=== PATIENT | male | born 1945 | race Caucasian/White ===

== ENCOUNTER 2016-09-21 21:30 | Observation (INO) | payer OTHER ==
[~2016-09-21] VITALS: Ht 172.7 cm; Wt 52.7 kg
[~2016-09-21 21:30] MED LIST: ADVA100A INH; ASPI1TAB69 PO; ATOR40TA16 PO; FINA5TAB2 PO; MIRTA15 PO; MULTTAB67 PO; PANT40TA3 PO; PRED10PA PO; QUET1TAB7 PO; SERT25TA83 PO; TAMS5CAP PO; VERA120 PO
[2016-09-21 21:38] VITALS: BP 156/98; PULSE 100; RESP 20; RESP 36; TEMP 96.1; O2SAT 96
[2016-09-21 22:00] VITALS: TEMP 100.8
[2016-09-21 22:06] VITALS: RESP 22; O2SAT 96
--- NOTE | 2016-09-21 22:08 | PD ---
HPI Chief Complaint: Respiratory Symptoms Time Seen by Provider: 22:03 Travel History International Travel<30 days: No Contact w/Intl Traveler<30days: No Traveled to known affect area: No History of Present Illness HPI The patient is a 71-year-old male with a history of COPD who complains of shortness of breath and pleuritic posterior right rib pain for 2 days. He has had a cough productive of yellow sputum. He denies any fever or chills. His temperature here is 100.8 rectally. He denies any hemoptysis. He denies any leg swelling. He has not smoked in over 30 years. He has not used his nebulizer machine at home. He got off steroids one week ago. PFSH Past Medical History Hx Anticoagulant Therapy: Yes Arthritis: Yes (Gout) Asthma: No Autoimmune Disease: No Blood Disorders: No Bipolar Disorder: Yes (INSOMNIA) Anxiety: No Depression: No Heart Rhythm Problems: No Cancer: No Cardiovascular Problems: Yes High Cholesterol: Yes Chemotherapy: No Chest Pain: Yes Congestive Heart Failure: Yes COPD: Yes Cerebrovascular Accident: No Coronary Artery Disease: Yes Diabetes: Yes Patient Takes Glucophage: Yes Diminished Hearing: No Endocrine: Yes Gastrointestinal Disorders: Yes (diverticulitis; SBO with resectionx3) GERD: Yes Genitourinary: Yes (prostate enlarged) Hypertension: Yes Immune Disorder: No Implanted Vascular Access Dvce: Yes Musculoskeletal: Yes Neurologic: No Psychiatric: No Reproductive: No Respiratory: Yes Immunizations Current: Yes Myocardial Infarction: Yes Radiation Therapy: No Sleep Apnea: No Thyroid Disease: No Tetanus Vaccination: > 5 Years Past Surgical History Abdominal Surgery: Yes (SB resecetion) Body Medical Devices: cardiac stents Cardiac Surgery: Yes (MIx2 WITH MULTIPLE STENT PLACEMENT, CABG 1 vessle RCA ) Coronary Artery Bypass Graft: Yes Coronary Stent: Yes Eye Surgery: Yes (CATERACTS REMOVED BILAT) Hysterectomy: No Joint Replacement: Yes (left ROTATOR CUFF REPAIR) Neurologic Surgery: No Pacemaker: No Thoracic Surgery: Yes (UMM UPPER LOBECTOMY) Other Surgery: Yes (multiple) Social History Alcohol Use: No Tobacco Use: No Substance Use: No Allergies-Medications (Allergen,Severity, Reaction): Coded Allergies: Morphine (Verified Allergy, Severe, Rash, 09/21/16) Azithromycin (Verified Allergy, Intermediate, Itching, 09/21/16) *MDRO Multi-Drug Resistant Organism (Verified Adverse Reaction, Unknown, MRSA, ESBL, 09/21/16) ESBL (sputum) - 07/18/15 & 08/17/15 ESBL (urine) - 08/22/15 MRSA PCR screen POSITIVE - 05/13/16; 06/14/16, 08/07/16 Reported Meds & Prescriptions Reported Meds & Active Scripts Active Prednisone (21) 10 mg tab Dose Pack (Prednisone) 10 Mg Pack 10 Mg PO DIRECTED Pantoprazole (Pantoprazole Sodium) 40 Mg Tab 40 Mg PO DAILY Mirtazapine 15 Mg Tab 30 Mg PO HS Calan (Verapamil HCl) 120 Mg Tab 120 Mg PO DAILY Flomax (Tamsulosin HCl) 0.4 Mg Cap 0.4 Mg PO DAILY Quetiapine (Quetiapine Fumarate) 25 Mg Tab 50 Mg PO BID Finasteride 5 Mg Tab 5 Mg PO DAILY Reported Sertraline (Sertraline HCl) 25 Mg Tab 25 Mg PO HS Multiple Vitamin 1 Tab 1 Tab PO DAILY Atorvastatin (Atorvastatin Calcium) 40 Mg Tab 40 Mg PO HS Aspirin 81 Mg Tabdr 81 Mg PO DAILY Advair Diskus Inh (Fluticasone-Salmeterol Inh) 100-50 Mcg/Blist Aer 1 Puff INH BID Rinse mouth after use. Review of Systems Except as stated in HPI: all other systems reviewed are Neg Physical Exam Narrative GENERAL: The patient is alert, oriented 3 in moderate respiratory distress. His vital signs show respiratory rate of 36 with oximetry 96%, heart rate of 100 and blood pressure 156/98 and rectal temperature of 100.8. SKIN: Warm and dry. HEAD: Atraumatic. Normocephalic. EYES: Pupils equal and round. No scleral icterus. No injection or drainage. ENT: No nasal bleeding or discharge. Mucous membranes pink and moist. NECK: Trachea midline. No JVD. CARDIOVASCULAR: Regular rate and rhythm. No murmur appreciated. RESPIRATORY: No accessory muscle use. Clear to auscultation. Breath sounds equal but diminished bilaterally. GASTROINTESTINAL: Abdomen soft, non-tender, nondistended. Hepatic and splenic margins not palpable. MUSCULOSKELETAL: No obvious deformities. No clubbing. No cyanosis. No edema. NEUROLOGICAL: Awake and alert. No obvious cranial nerve deficits. Motor grossly within normal limits. Normal speech. PSYCHIATRIC: Appropriate mood and affect; insight and judgment normal. Data Data Last Documented VS Vital Signs Date Time Temp Pulse Resp B/P Pulse Ox O2 Delivery O2 Flow Rate FiO2 09/21/16 22:27 94 Nasal Cannula 3.00 09/21/16 22:06 22 09/21/16 22:00 100.8 09/21/16 21:38 100 156/98 Orders Complete Blood Count With Diff (09/21/16 22:03) Comprehensive Metabolic Panel (09/21/16 22:03) B-Type Natriuretic Peptide (09/21/16 22:03) Magnesium (Mg) (09/21/16 22:03) Ckmb (Isoenzyme) Profile (09/21/16 22:03) Troponin I (09/21/16 22:03) Urinalysis - C+S If Indicated (09/21/16 22:03) Influenzae A/B Antigen (09/21/16 22:03) Blood Culture (09/21/16 22:03) Iv Access Insert/Monitor (09/21/16 22:03) Electrocardiogram (09/21/16 22:03) Ecg Monitoring (09/21/16 22:03) Oximetry (09/21/16 22:03) Oxygen Administration (09/21/16 22:03) Chest, Pa & Lat (09/21/16 22:03) Sodium Chloride 0.9% Flush (Ns Flush) (09/21/16 22:15) Methylprednisolone So Succ Inj (Solumedr (09/21/16 22:15) Albuterol-Ipratropium Neb (Duoneb Neb) (09/21/16 22:15) Lactic Acid (09/21/16 22:17) Arterial Blood Gas (Abg) (09/21/16 23:05) Sodium Chloride 0.9% Flush (Ns Flush) (09/21/16 23:15) Albuterol-Ipratropium Neb (Duoneb Neb) (09/21/16 23:15) Lorazepam Inj (Ativan Inj) (09/21/16 23:30) Labs Laboratory Tests Test 09/21/16 09/21/16 22:00 23:22 White Blood Count 9.0 TH/MM3 Red Blood Count 5.40 MIL/MM3 Hemoglobin 16.6 GM/DL Hematocrit 48.9 % Mean Corpuscular Volume 90.6 FL Mean Corpuscular Hemoglobin 30.8 PG Mean Corpuscular Hemoglobin 34.0 % Concent Red Cell Distribution Width 12.8 % Platelet Count 280 TH/MM3 Mean Platelet Volume 7.3 FL Neutrophils (%) (Auto) 65.4 % Lymphocytes (%) (Auto) 21.5 % Monocytes (%) (Auto) 7.2 % Eosinophils (%) (Auto) 2.8 % Basophils (%) (Auto) 3.1 % Neutrophils # (Auto) 5.9 TH/MM3 Lymphocytes # (Auto) 1.9 TH/MM3 Monocytes # (Auto) 0.6 TH/MM3 Eosinophils # (Auto) 0.3 TH/MM3 Basophils # (Auto) 0.3 TH/MM3 CBC Comment DIFF FINAL Differential Comment Sodium Level 139 MEQ/L Potassium Level 5.4 MEQ/L Chloride Level 103 MEQ/L Carbon Dioxide Level 25.4 MEQ/L Anion Gap 11 MEQ/L Blood Urea Nitrogen 16 MG/DL Creatinine 1.30 MG/DL Estimat Glomerular Filtration 54 ML/MIN Rate Random Glucose 95 MG/DL Calcium Level 9.5 MG/DL Magnesium Level 2.2 MG/DL Total Bilirubin 0.9 MG/DL Aspartate Amino Transf 40 U/L (AST/SGOT) Alanine Aminotransferase 18 U/L (ALT/SGPT) Alkaline Phosphatase 119 U/L Total Creatine Kinase 100 U/L Troponin I LESS THAN 0.02 NG/ML B-Type Natriuretic Peptide 44 PG/ML Total Protein 7.9 GM/DL Albumin 3.3 GM/DL Blood Gas Puncture Site LT BRACHIAL Blood Gas Patient Temperature 98.6 Blood Gas HCO3 15 mmol/L Blood Gas Base Excess -5.7 mmol/L Blood Gas Oxygen Saturation 96 % Arterial Blood pH 7.69 Arterial Blood Partial 12 mmHG Pressure CO2 Arterial Blood Partial 92 mmHG Pressure O2 Arterial Blood Oxygen Content 21.2 Vol % Arterial Blood 2.1 % Carboxyhemoglobin Arterial Blood Methemoglobin 0.9 % Blood Gas Hemoglobin 15.7 G/DL Oxygen Delivery Device NASAL CANNULA Blood Gas Liter Flow 3 L/M [facility] Medical Decision Making Medical Screen Exam Complete: Yes Emergency Medical Condition: Yes Medical Record Reviewed: Yes Interpretation(s) The EKG shows PVCs but otherwise no acute change. There is a sinus rhythm with a rate of 90. The chest x-ray shows no acute infiltrate but does show stable basilar scarring and fibrotic changes along with emphysema. The CBC is normal. The complete metabolic profile shows potassium of 5.4, AST of 40, alkaline phosphatase 119, and albumin of 3.3. The BNP is normal. The cardiac enzymes are normal. The influenza A/B antigen is negative for flu a and flu B antigen. Differential Diagnosis Pneumonia, rib fracture, COPD with acute exacerbation, hypoxemia, bronchitis, anxiety/hyperventilation, sepsis Narrative Course The patient does have a fever with a rectal temperature. He does fit SIRS criteria because of the respiratory rate and tachycardia. The source of fever is unknown. He does have extreme anxiety/hyperventilation. Pulmonary embolus is highly unlikely, his oxygenation goes up when he is put on his usual 3 L nasal cannula. Sepsis Criteria SIRS Criteria (2 or more): Heart rate over 90, RR > 20 or PaCO2 < 32 Criteria Outcome: Meets SIRS criteria Diagnosis Primary Impression: Anxiety hyperventilation Additional Impression: SIRS (systemic inflammatory response syndrome) Admitting Information Admitting Physician Requests: Observation Khoa Lance MD Sep 21, 2016 22:08
[2016-09-21] MEDS ORDERED: methylPREDNISolone SOD SUCC 125 MG/2 ML VIAL IVP ONE (22:15)
[2016-09-21] MEDS ORDERED: SODIUM CHLORIDE 0.9% FLUSH 5 ML FLUSH IVF PRN ×2 (22:15→23:15)
[2016-09-21 22:25] LABS: AUTOMATED NEUTROPHIL # 5.9 TH/MM3 (1.8-7.7); BASOPHIL # 0.3 TH/MM3 (0-0.2); BASOPHIL % 3.1 % (0.0-2.0); EOSINOPHIL # 0.3 TH/MM3 (0-0.4); EOSINOPHIL % 2.8 % (0.0-4.0); HEMATOCRIT 48.9 % (39.0-51.0); HEMO FLAGS DIFF FINAL; LYMPH % 21.5 % (9.0-44.0); LYMPHOCYTE # 1.9 TH/MM3 (1.0-4.8); MEAN CELL VOLUME 90.6 FL (80.0-100.0); MEAN CORPUSCULAR HEMOGLOBIN 30.8 PG (27.0-34.0); MONO % 7.2 % (0.0-8.0); NEUT % 65.4 % (16.0-70.0); PLATELET COUNT 280 TH/MM3 (150-450); RED CELL DISTRIBUTION WIDTH 12.8 % (11.6-17.2)
[2016-09-21 22:27] VITALS: O2SAT 94
[2016-09-21] MEDS: RESP: ALBUTEROL 2.5 MG/IPRATROPIUM 0.5 MG NEB (SCH) INH ×5 (22:27→23:30)
[2016-09-21 22:32] LABS: CHLORIDE 103 MEQ/L (98-107); SODIUM (NA) 139 MEQ/L (136-145)
[2016-09-21 22:35] LABS: ANION GAP 11 MEQ/L (5-15); BICARBONATE 25.4 MEQ/L (21.0-32.0); MAGNESIUM 2.2 MG/DL (1.5-2.5)
--- NOTE | 2016-09-21 22:35 | RADHPO ---
EXAM DATE/TIME: 09/21/2016 22:12 [facility] COMPARISON: CHEST PA & LAT, August 30, 2016, 22:46. INDICATIONS : Patient has been short of breath and had back pain for two days. MEDICAL HISTORY : Chronic obstructive pulmonary disease. SURGICAL HISTORY : CABG. ENCOUNTER: Initial ACUITY: 2 days PAIN SCORE: 8/10 LOCATION: Bilateral chest FINDINGS: PA and lateral views of the chest demonstrate postop median sternotomy. Lung steve noted both apice s. Underlying emphysema and basilar fibrotic changes and pleural scarring. No change from August. CONCLUSION: 1. No acute infiltrate. Stable basilar scarring and fibrotic changes. Emphysema. Coronary stent prese nt. Kevin Giang MD on September 21, 2016 at 22:32 Board Certified Radiologist. This report was verified electronically.
[2016-09-21 22:36] LABS: BLOOD UREA NITROGEN 16 MG/DL (7-18)
[2016-09-21 22:38] LABS: ALT (GPT) 18 U/L (12-78); AST (GOT) 40 U/L (15-37)
[2016-09-21 22:39] LABS: GLOMERULAR FILTRATION RATE 54 ML/MIN (>89)
[2016-09-21 22:40] LABS: TOTAL BILIRUBIN ADULT 0.9 MG/DL (0.2-1.0)
[2016-09-21 22:41] LABS: ALKALINE PHOSPHATASE 119 U/L (45-117)
[2016-09-21 22:43] LABS: CREATINE KINASE 100 U/L (39-308); POTASSIUM 5.4 MEQ/L (3.5-5.1)
[2016-09-21 23:00] VITALS: BP 156/88; PULSE 98; RESP 22; O2SAT 98
[2016-09-21] MEDS ORDERED: LORazepam 2 MG/ML VIAL IV PUSH ONE (23:30)
[2016-09-21 23:36] LABS: BLOOD GAS BASE EXCESS -5.7 mmol/L (-2-2); BLOOD GAS CARBOXYHEMOGLOBIN 2.1 % (0-4); BLOOD GAS HCO3 15 mmol/L (22-26); BLOOD GAS METHEMOGLOBIN 0.9 % (0-2); BLOOD GAS O2 HGB SATURATION 96 % (90-100); BLOOD GAS OXYGEN CONTENT 21.2 Vol % (12.0-20.0); BLOOD GAS PCO2 12 mmHG (38-42); BLOOD GAS PO2 92 mmHG (61-120); BLOOD GAS TOTAL HGB 15.7 G/DL (12.0-16.0); CRITICAL VALUE YES; DRAW SITE LT BRACHIAL; LITER FLOW 3 L/M; NUMBER OF ARTERIAL PUNCTURES 1; OXYGEN DEVICE NASAL CANNULA; STAT YES; TEMP CORR TO 98.6
[2016-09-22] VITALS (10 sets, daily range): BP systolic 102–157; BP diastolic 64–86; PULSE 90–114; RESP 20–22; TEMP 96.7–99.3; O2SAT 98–100
[2016-09-22] MEDS ORDERED: RESP: ALBUTEROL 2.5 MG/IPRATROPIUM 0.5 MG NEB (PRN) NEB
[2016-09-22] MEDS ORDERED: BISACODYL 10 MG SUPP PR PRN
[2016-09-22] MEDS ORDERED: ACETAMINOPHEN/HYDROcodone 325 MG/5 MG TAB PO PRN
[2016-09-22] MEDS ORDERED: ONDANSETRON HCL 4 MG/2 ML VIAL IVP PRN
[2016-09-22] MEDS ORDERED: ACETAMINOPHEN 325 MG TAB PO PRN
[2016-09-22] MEDS ORDERED: ACETAMINOPHEN/HYDROcodone 325 MG/10 MG TAB PO PRN
[2016-09-22] MEDS ORDERED: SODIUM CHLORIDE 0.9% FLUSH 5 ML FLUSH FLUSH PRN
[2016-09-22] MEDS ORDERED: LORazepam 2 MG/ML VIAL IV PUSH PRN
[2016-09-22] MEDS: methylPREDNISolone SOD SUCC 40 MG/1 ML VIAL IV PUSH SCH ×2 (03:53→09:43)
[2016-09-22] MEDS: RESP: ALBUTEROL 2.5 MG/IPRATROPIUM 0.5 MG NEB (SCH) NEB ×3 (07:47→15:57)
[2016-09-22] MEDS: guaiFENesin E.R. 600 MG TAB PO SCH ×2 (08:17→19:36)
[2016-09-22] MEDS: QUEtiapine FUMARATE 25 MG TAB PO SCH ×2 (08:17→19:32)
[2016-09-22] MEDS ORDERED: VERAPAMIL HCL 120 MG TAB PO SCH (09:00)
[2016-09-22] MEDS ORDERED: ASPIRIN EC 81 MG TABEC PO SCH (09:00)
[2016-09-22] MEDS ORDERED: FINASTERIDE 5 MG TAB PO SCH (09:00)
[2016-09-22] MEDS ORDERED: TAMSULOSIN HCL 0.4 MG CAP PO SCH (09:00)
[2016-09-22] MEDS ORDERED: PANTOPRAZOLE SOD 40 MG DELAYED RELEASE TAB PO SCH (09:00)
[2016-09-22] MEDS ORDERED: NON-FORMULARY DRUG (Fluticasone-Salmeterol Inh (Advair Diskus Inh) 1 PUFF) INH SCH (09:00)
[2016-09-22] MEDS: SODIUM CHLORIDE 0.9% FLUSH 5 ML FLUSH FLUSH SCH ×2 (09:42→19:42)
[2016-09-22] MEDS: BUDESONIDE-FORMOTEROL 160/4.5 MCG INHALER INH SCH ×2 (09:42→19:40)
[2016-09-22] MEDS ORDERED: METFORMIN HOLD POST IV CONTRAST XX SCH (11:15)
[2016-09-22] MEDS ORDERED: IOHEXOL 350 MG/ML 10 ML VIAL (for RAD DIAG) IV ONE (11:27)
--- NOTE | 2016-09-22 11:41 | RADHPO ---
EXAM DATE/TIME: 09/22/2016 10:55 [facility] COMPARISON: CT PULMONARY ANGIOGRAM, August 07, 2016, 22:00. INDICATIONS : Shortness of breath and right posterior chest pain for two days. IV CONTRAST: 70 cc Omnipaque 350 (iohexol) IV RADIATION DOSE: 12.46 CTDIvol (mGy) MEDICAL HISTORY : Congestive heart failure. Chronic obstructive pulmonary disease. Myocardial infarction. SURGICAL HISTORY : CABG Lobectomy. ENCOUNTER: Initial ACUITY: 2 days PAIN SCALE: 5/10 LOCATION: Right posterior chest TECHNIQUE: Volumetric scanning of the chest was performed using a pulmonary embolism protocol MIP images were re constructed. Using automated exposure control and adjustment of the mA and/or kV according to patien t size, radiation dose was kept as low as reasonably achievable to obtain optimal diagnostic quality images. FINDINGS: There is respiratory motion artifact. PULMONARY ARTERIES: No filling defects are seen in the pulmonary arteries through the segmental level. LUNGS: There is severe centrilobular and paraseptal emphysema. Staple lines are in the upper lobes bilateral ly indicating prior surgery. There is dependent atelectasis bilaterally. PLEURAE: There is no pleural thickening or pleural effusion. MEDIASTINUM: There is coronary artery calcification. No lymphadenopathy is visualized. MUSCULOSKELETAL: Patient is post median sternotomy. There are degenerative changes of the thoracic spine. MISCELLANEOUS: The visualized upper abdominal organs demonstrate no acute abnormality. CONCLUSION: 1. No PE is identified. 2. Severe emphysema. Bartolo Guaman MD on September 22, 2016 at 11:36 Board Certified Radiologist. This report was verified electronically.
[2016-09-22 14:00] LABS: BICARBONATE 23.1 MEQ/L (21.0-32.0); POTASSIUM 4.2 MEQ/L (3.5-5.1)
[2016-09-22 16:25] LABS: BLOOD GAS BASE EXCESS -7.1 mmol/L (-2-2); BLOOD GAS HCO3 14 mmol/L (22-26); BLOOD GAS METHEMOGLOBIN 0.9 % (0-2); BLOOD GAS O2 HGB SATURATION 97 % (90-100); BLOOD GAS OXYGEN CONTENT 19.8 Vol % (12.0-20.0); BLOOD GAS PCO2 14 mmHG (38-42); BLOOD GAS PO2 122 mmHG (61-120); BLOOD GAS TOTAL HGB 14.5 G/DL (12.0-16.0); TEMP CORR TO 98.6
[2016-09-22 16:27] LABS: CRITICAL VALUE YES; DRAW SITE LT RADIAL; LITER FLOW 2 L/M; NUMBER OF ARTERIAL PUNCTURES 1; OXYGEN DEVICE NASAL CANNULA; STAT YES; ULNAR PULSE PRESENT
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
[2016-09-22 19:55] LABS: BLOOD, URINE NEG (NEG); GLUCOSE,URINE NEG (NEG); KETONE, URINE NEG (NEG); NITRITE,URINE NEG (NEG)
[2016-09-22 20:01] LABS: URINE COLOR YELLOW (YELLW/STRAW)
[2016-09-22 20:02] LABS: COMMENT (UR) CULT NOT INDICATED; CULTURE IF INDICATED CULT NOT INDICATED; RBC, URINE 0-2 /hpf (0-3); SQUAMOUS EPITHELIAL CELL URINE 0-5 /hpf (0-5); WBC, URINE 0-2 /hpf (0-5)
[2016-09-22] MEDS ORDERED: MIRTAZAPINE 15 MG TAB PO SCH (21:00)
[2016-09-22] MEDS ORDERED: SERTRALINE HCL 50 MG TAB PO SCH (21:00)
[2016-09-22] MEDS ORDERED: clonazePAM 0.5 MG TAB PO SCH (21:00)
[2016-09-22] MEDS ORDERED: ATORVASTATIN 40 MG TAB PO SCH (21:00)
[2016-09-22] MEDS ORDERED: methylPREDNISolone SOD SUCC 125 MG/2 ML VIAL IV SCH (22:00)
--- NOTE | 2016-09-24 22:35 | EKG ---
Date Performed: 09/21/2016 Time Performed: 22:25:28 PTAGE: 71 years EKG: Sinus rhythm with PVC(s) Inferior infarct - age undetermined Abnormal ECG PREVIOUS TRACING : 08/30/2016 22.04 Compared to prior tracing no significant change DOCTOR: Elan Felix Interpretating Date/Time 09/24/2016 22:34:17
== END 2016-09-22 21:14 | disposition left against medical advice (07) ==
LOC: PHEFT 21:30 → UNDOADMOB 09-22 00:21 → PHEDA 09-22 00:21 → PH3A 09-22 01:27 → PHEDA 09-22 01:27 → PH3A 09-22 20:43 → UNDODISOB 09-22 21:14
PROVIDERS: ADMIT Family Medicine; ATTEND Family Medicine
DX: R65.10 Systemic inflammatory response syndrome (SIRS) of non-infectious origin without acute organ dysfunction (principal); F41.9 Anxiety disorder, unspecified; J96.10 Chronic respiratory failure, unspecified whether with hypoxia or hypercapnia; J44.9 Chronic obstructive pulmonary disease, unspecified; I25.10 Atherosclerotic heart disease of native coronary artery without angina pectoris; I12.9 Hypertensive chronic kidney disease with stage 1 through stage 4 chronic kidney disease, or unspecified chronic kidney disease; N18.3 Chronic kidney disease, stage 3 (moderate); E11.22 Type 2 diabetes mellitus with diabetic chronic kidney disease; E78.00 Pure hypercholesterolemia, unspecified; M54.9 Dorsalgia, unspecified; M10.9 Gout, unspecified; K21.9 Gastro-esophageal reflux disease without esophagitis; I25.2 Old myocardial infarction; E78.5 Hyperlipidemia, unspecified; E87.4 Mixed disorder of acid-base balance; M19.90 Unspecified osteoarthritis, unspecified site; Z87.891 Personal history of nicotine dependence; Z95.1 Presence of aortocoronary bypass graft; Z99.81 Dependence on supplemental oxygen
CPT/HCPCS: 36600; 71020; 71275; 76937; 80048; 80053; 81001; 82550; 82805; 83605; 83735; 83880; 84484; 85025; 85379; 87040; 87804; 93005; 94640; 94664; 96374; 96375; 99285; G0378; J2060; J2920; J2930; Q9967

== ENCOUNTER 2016-10-01 20:35 | Observation (INO) | payer OTHER ==
[~2016-10-01] VITALS: Ht 172.7 cm; Wt 52.4 kg
[2016-10-01] VITALS (7 sets, daily range): BP systolic 135–160; BP diastolic 60–98; PULSE 108–122; RESP 24–32; TEMP 99.8; O2SAT 92–97
[2016-10-01] MEDS ORDERED: RESP: ALBUTEROL 2.5 MG/IPRATROPIUM 0.5 MG NEB (SCH) NEB ONE (21:45)
--- NOTE | 2016-10-01 21:53 | RADHPO ---
EXAM DATE/TIME: 10/01/2016 21:26 [place] COMPARISON: CHEST SINGLE AP, August 13, 2016, 19:11. INDICATIONS : Short of breath MEDICAL HISTORY : Myocardial infarction. Congestive heart failure. Hypercholesterolemia. Chest SURGICAL HISTORY : CABG. ENCOUNTER: Initial ACUITY: 1 day PAIN SCORE: Non-responsive. LOCATION: Bilateral chest FINDINGS: A single view of the chest demonstrates underlying emphysema. Chronic blunting of the costophrenic an gles. No new consolidation or new effusion. Heart size normal. No pneumothorax. CONCLUSION: 1. No acute findings compared with August 2016. Stable basilar lung scarring. Underlying emphysema. Kevin Giang MD on October 01, 2016 at 21:50 Board Certified Radiologist. This report was verified electronically.
[2016-10-01 21:54] LABS: CHLORIDE 107 MEQ/L (98-107); POTASSIUM 3.5 MEQ/L (3.5-5.1); SODIUM (NA) 142 MEQ/L (136-145)
[2016-10-01 21:57] LABS: BLOOD GAS HCO3 17 mmol/L (22-26); BLOOD GAS METHEMOGLOBIN 0.8 % (0-2); BLOOD GAS O2 HGB SATURATION 97 % (90-100); BLOOD GAS PCO2 15 mmHG (38-42); BLOOD GAS PO2 108 mmHG (61-120); BLOOD GAS TOTAL HGB 15.4 G/DL (12.0-16.0); TEMP CORR TO 98.6
[2016-10-01 21:58] LABS: ANION GAP 12 MEQ/L (5-15); BICARBONATE 23.1 MEQ/L (21.0-32.0); BLOOD UREA NITROGEN 11 MG/DL (7-18)
[2016-10-01 21:58] LABS: CRITICAL VALUE YES; DRAW SITE RT BRACHIAL; LITER FLOW 4 L/M; NUMBER OF ARTERIAL PUNCTURES 1; OXYGEN DEVICE NASAL CANNULA; STAT YES; ULNAR PULSE Y
--- NOTE | 2016-10-01 21:58 | PD ---
HPI Chief Complaint: Respiratory Symptoms Time Seen by Provider: 20:50 Travel History International Travel<30 days: No Contact w/Intl Traveler<30days: No Traveled to known affect area: No History of Present Illness HPI This 71-year-old male is complaining of shortness of breath. He apparently lives alone. He has a history of emphysema. He has been here in the past with marked respiratory alkalosis question of anxiety. He also has psychiatric issues. In the past he has inflicted lacerations on his abdomen which required surgical repair. He denies any chest pain. He says he been short of breath for a couple of days. He has nebulizers at home. It is hard to get much history on this patient. It seems that he uses 3 L of oxygen at home as needed. PFSH Past Medical History Hx Anticoagulant Therapy: Yes Arthritis: Yes (Gout) Asthma: No Autoimmune Disease: No Blood Disorders: No Bipolar Disorder: Yes (INSOMNIA) Anxiety: Yes Depression: No Heart Rhythm Problems: No Cancer: No Cardiovascular Problems: Yes High Cholesterol: Yes Chemotherapy: No Chest Pain: Yes Congestive Heart Failure: Yes COPD: Yes Cerebrovascular Accident: No Coronary Artery Disease: Yes Diabetes: Yes Diminished Hearing: No Endocrine: Yes Gastrointestinal Disorders: Yes (diverticulitis; SBO with resectionx3) GERD: Yes Genitourinary: Yes (prostate enlarged) Hypertension: Yes Immune Disorder: No Implanted Vascular Access Dvce: Yes Musculoskeletal: Yes Neurologic: No Psychiatric: Yes Reproductive: No Respiratory: Yes Immunizations Current: Yes Myocardial Infarction: Yes Radiation Therapy: No Sleep Apnea: No Thyroid Disease: No Past Surgical History Abdominal Surgery: Yes (SB resecetion) Body Medical Devices: cardiac stents Cardiac Surgery: Yes (MIx2 WITH MULTIPLE STENT PLACEMENT, CABG 1 vessle RCA ) Coronary Artery Bypass Graft: Yes Coronary Stent: Yes Eye Surgery: Yes (CATERACTS REMOVED BILAT) Hysterectomy: No Joint Replacement: Yes (left ROTATOR CUFF REPAIR) Neurologic Surgery: No Pacemaker: No Thoracic Surgery: Yes (UMM UPPER LOBECTOMY) Other Surgery: Yes (multiple) Social History Alcohol Use: No Tobacco Use: No Substance Use: No Allergies-Medications (Allergen,Severity, Reaction): Coded Allergies: Morphine (Verified Allergy, Severe, Rash, 09/21/16) Azithromycin (Verified Allergy, Intermediate, Itching, 09/21/16) *MDRO Multi-Drug Resistant Organism (Verified Adverse Reaction, Unknown, MRSA, ESBL, 09/24/16) ESBL (sputum) - 07/18/15 & 08/17/15 ESBL (urine) - 08/22/15 MRSA PCR screen POSITIVE - 05/13/16; 06/14/16, 08/07/16 Reported Meds & Prescriptions Reported Meds & Active Scripts Active Prednisone (21) 10 mg tab Dose Pack (Prednisone) 10 Mg Pack 10 Mg PO DIRECTED Pantoprazole (Pantoprazole Sodium) 40 Mg Tab 40 Mg PO DAILY Mirtazapine 15 Mg Tab 30 Mg PO HS Calan (Verapamil HCl) 120 Mg Tab 120 Mg PO DAILY Flomax (Tamsulosin HCl) 0.4 Mg Cap 0.4 Mg PO DAILY Quetiapine (Quetiapine Fumarate) 25 Mg Tab 50 Mg PO BID Finasteride 5 Mg Tab 5 Mg PO DAILY Reported Sertraline (Sertraline HCl) 25 Mg Tab 25 Mg PO HS Multiple Vitamin 1 Tab 1 Tab PO DAILY Atorvastatin (Atorvastatin Calcium) 40 Mg Tab 40 Mg PO HS Aspirin 81 Mg Tabdr 81 Mg PO DAILY Advair Diskus Inh (Fluticasone-Salmeterol Inh) 100-50 Mcg/Blist Aer 1 Puff INH BID Rinse mouth after use. Review of Systems General / Constitutional: No: Fever, Chills Eyes: No: Diploplia HENT: No: Headaches Cardiovascular: No: Chest Pain or Discomfort Respiratory: Positive: Cough, Shortness of Breath Gastrointestinal: No: Vomiting, Diarrhea Genitourinary: No: Urgency, Frequency Musculoskeletal: No: Myalgias, Arthralgias Skin: No Rash Psychiatric: No: Substance Abuse Hematologic/Lymphatic: Positive: Easy Bruising Physical Exam Narrative Patient arrives in marked respiratory distress. His sats were only 70 he is a thin chronically ill appearing male SKIN: Warm and dry. HEAD: Atraumatic. Normocephalic. EYES: Pupils equal and round. No scleral icterus. No injection or drainage. ENT: No nasal bleeding or discharge. Mucous membranes pink and moist. NECK: Trachea midline. No JVD. CARDIOVASCULAR: Regular rate and rhythm. No murmur appreciated. RESPIRATORY: There is accessory muscle use, diminished breath sounds bilaterally GASTROINTESTINAL: Abdomen soft, non-tender, nondistended. Hepatic and splenic margins not palpable. Multiple abdominal scars MUSCULOSKELETAL: No obvious deformities. No clubbing. There is peripheral cyanosis. No edema. NEUROLOGICAL: Awake and alert. No obvious cranial nerve deficits. Motor grossly within normal limits. Normal speech. PSYCHIATRIC: Appropriate mood and affect; insight and judgment normal. Data Data Last Documented VS Vital Signs Date Time Temp Pulse Resp B/P Pulse Ox O2 Delivery O2 Flow Rate FiO2 10/01/16 20:40 99.8 110 30 141/84 Orders Electrocardiogram (10/01/16 20:52) Complete Blood Count With Diff (10/01/16 20:52) Comprehensive Metabolic Panel (10/01/16 20:52) Troponin I (10/01/16 20:52) B-Type Natriuretic Peptide (10/01/16 20:52) Arterial Blood Gas (Abg) (10/01/16 20:52) Urinalysis - C+S If Indicated (10/01/16 20:52) Chest, Single Ap (10/01/16 20:52) Ecg Monitoring (10/01/16 20:52) Oximetry (10/01/16 20:52) Albuterol-Ipratropium Neb (Duoneb Neb) (10/01/16 21:45) Labs Laboratory Tests Test 10/01/16 10/01/16 21:00 21:47 White Blood Count 8.7 TH/MM3 Red Blood Count 5.08 MIL/MM3 Hemoglobin 15.4 GM/DL Hematocrit 46.2 % Mean Corpuscular Volume 91.0 FL Mean Corpuscular Hemoglobin 30.3 PG Mean Corpuscular Hemoglobin 33.3 % Concent Red Cell Distribution Width 12.7 % Platelet Count 329 TH/MM3 Mean Platelet Volume 7.4 FL Neutrophils (%) (Auto) 71.6 % Lymphocytes (%) (Auto) 17.1 % Monocytes (%) (Auto) 8.3 % Eosinophils (%) (Auto) 1.9 % Basophils (%) (Auto) 1.1 % Neutrophils # (Auto) 6.2 TH/MM3 Lymphocytes # (Auto) 1.5 TH/MM3 Monocytes # (Auto) 0.7 TH/MM3 Eosinophils # (Auto) 0.2 TH/MM3 Basophils # (Auto) 0.1 TH/MM3 CBC Comment DIFF FINAL Differential Comment Sodium Level 142 MEQ/L Potassium Level 3.5 MEQ/L Chloride Level 107 MEQ/L Carbon Dioxide Level 23.1 MEQ/L Anion Gap 12 MEQ/L Blood Urea Nitrogen 11 MG/DL Creatinine 1.20 MG/DL Estimat Glomerular Filtration 60 ML/MIN Rate Random Glucose 119 MG/DL Calcium Level 9.2 MG/DL Total Bilirubin 0.9 MG/DL Aspartate Amino Transf 12 U/L (AST/SGOT) Alanine Aminotransferase 16 U/L (ALT/SGPT) Alkaline Phosphatase 109 U/L Troponin I LESS THAN 0.02 NG/ML Total Protein 7.0 GM/DL Albumin 3.1 GM/DL Blood Gas Puncture Site RT BRACHIAL Blood Gas Patient Temperature 98.6 Blood Gas HCO3 17 mmol/L Blood Gas Base Excess -4.0 mmol/L Blood Gas Oxygen Saturation 97 % Arterial Blood pH 7.67 Arterial Blood Partial 15 mmHG Pressure CO2 Arterial Blood Partial 108 mmHG Pressure O2 Arterial Blood Oxygen Content 21.0 Vol % Arterial Blood 2.0 % Carboxyhemoglobin Arterial Blood Methemoglobin 0.8 % Blood Gas Hemoglobin 15.4 G/DL Oxygen Delivery Device NASAL CANNULA Blood Gas Liter Flow 4 L/M MDM Medical Decision Making Medical Screen Exam Complete: Yes Emergency Medical Condition: Yes Medical Record Reviewed: Yes Differential Diagnosis Differential includes COPD exacerbation, CHF, hyperventilation Narrative Course Been giving nebulizer treatments. Chest x-ray is similar to previous x-ray done in August. Lab work is unremarkable he has been given nebulizer treatments with improvement. It was hard to get an accurate oximetry on this gentleman. He does have some peripheral cyanosis. The blood gas shows good oxygenation and a respiratory alkalosis Diagnosis Primary Impression: COPD with acute exacerbation Additional Impression: Respiratory alkalosis Jaime Navarro MD Oct 01, 2016 21:58
[2016-10-01 21:59] LABS: AUTOMATED NEUTROPHIL # 6.2 TH/MM3 (1.8-7.7); BASOPHIL # 0.1 TH/MM3 (0-0.2); BASOPHIL % 1.1 % (0.0-2.0); EOSINOPHIL # 0.2 TH/MM3 (0-0.4); EOSINOPHIL % 1.9 % (0.0-4.0); HEMATOCRIT 46.2 % (39.0-51.0); HEMO FLAGS DIFF FINAL; LYMPH % 17.1 % (9.0-44.0); LYMPHOCYTE # 1.5 TH/MM3 (1.0-4.8); MEAN CORPUSCULAR HEMOGLOBIN 30.3 PG (27.0-34.0); MEAN CORPUSCULAR HGB CONC 33.3 % (32.0-36.0); MONO % 8.3 % (0.0-8.0); NEUT % 71.6 % (16.0-70.0); PLATELET COUNT 329 TH/MM3 (150-450); RED BLOOD COUNT 5.08 MIL/MM3 (4.50-5.90); RED CELL DISTRIBUTION WIDTH 12.7 % (11.6-17.2); WHITE BLOOD COUNT 8.7 TH/MM3 (4.0-11.0)
[2016-10-01 22:01] LABS: ALT (GPT) 16 U/L (12-78); AST (GOT) 12 U/L (15-37); GLOMERULAR FILTRATION RATE 60 ML/MIN (>89)
[2016-10-01 22:02] LABS: TOTAL BILIRUBIN ADULT 0.9 MG/DL (0.2-1.0)
[2016-10-01 22:04] LABS: ALKALINE PHOSPHATASE 109 U/L (45-117)
[2016-10-01 22:31] LABS: BLOOD, URINE NEG (NEG); GLUCOSE,URINE NEG (NEG); KETONE, URINE NEG (NEG); NITRITE,URINE NEG (NEG)
[2016-10-01 22:53] LABS: METHOD OF COLLECTION CLEAN CATCH; URINE COLOR YELLOW (YELLW/STRAW)
[2016-10-01 22:54] LABS: MUCUS URINE FEW /lpf (OCC)
[2016-10-01 22:55] LABS: SQUAMOUS EPITHELIAL CELL URINE 0-5 /hpf (0-5); WBC, URINE 0-2 /hpf (0-5)
[2016-10-01 22:56] LABS: COMMENT (UR) CULT NOT INDICATED; CULTURE IF INDICATED CULT NOT INDICATED
[2016-10-01] MEDS ORDERED: RESP: ALBUTEROL 2.5 MG/IPRATROPIUM 0.5 MG NEB (PRN) NEB (23:00)
[2016-10-01] MEDS ORDERED: NALOXONE HCL 0.4 MG/ML AMP IV PRN (23:00)
[2016-10-01] MEDS ORDERED: SODIUM CHLORIDE 0.9% FLUSH 5 ML FLUSH FLUSH PRN (23:00)
[2016-10-01] MEDS ORDERED: ACETAMINOPHEN 325 MG TAB PO ONE (23:45)
[2016-10-02] VITALS (13 sets, daily range): BP systolic 110–140; BP diastolic 71–84; PULSE 88–117; RESP 16–26; TEMP 95.8–100.3; O2SAT 92–100
[2016-10-02] MEDS ORDERED: RESP: IPRATROPIUM 0.5 MG/2.5 ML NEB NEB PRN (04:30)
[2016-10-02 06:40] LABS: AUTOMATED NEUTROPHIL # 7.5 TH/MM3 (1.8-7.7); BASOPHIL # 0.1 TH/MM3 (0-0.2); BASOPHIL % 0.5 % (0.0-2.0); EOSINOPHIL # 0.1 TH/MM3 (0-0.4); EOSINOPHIL % 0.7 % (0.0-4.0); HEMATOCRIT 40.2 % (39.0-51.0); HEMO FLAGS DIFF FINAL; LYMPH % 15.4 % (9.0-44.0); LYMPHOCYTE # 1.5 TH/MM3 (1.0-4.8); MEAN CELL VOLUME 90.6 FL (80.0-100.0); MEAN CORPUSCULAR HEMOGLOBIN 30.7 PG (27.0-34.0); MEAN CORPUSCULAR HGB CONC 33.8 % (32.0-36.0); MONO % 9.2 % (0.0-8.0); NEUT % 74.2 % (16.0-70.0); PLATELET COUNT 315 TH/MM3 (150-450); RED BLOOD COUNT 4.43 MIL/MM3 (4.50-5.90); RED CELL DISTRIBUTION WIDTH 13.2 % (11.6-17.2); WHITE BLOOD COUNT 10.1 TH/MM3 (4.0-11.0)
[2016-10-02 06:41] LABS: POTASSIUM 3.1 MEQ/L (3.5-5.1)
[2016-10-02 06:45] LABS: BICARBONATE 23.5 MEQ/L (21.0-32.0)
[2016-10-02] MEDS: SODIUM CHLORIDE 0.9% FLUSH 5 ML FLUSH FLUSH SCH ×2 (09:00→19:58)
[2016-10-02] MEDS: POTASSIUM CHLORIDE 10 MEQ CONTROLLED RELEASE TAB PO SCH (13:23)
[2016-10-02] MEDS: RESP: ALBUTEROL 2.5 MG/IPRATROPIUM 0.5 MG NEB (SCH) NEB ×2 (13:51→20:31)
[2016-10-02] MEDS ORDERED: methylPREDNISolone SOD SUCC 40 MG/1 ML VIAL IV PUSH SCH (14:00)
--- NOTE | 2016-10-02 14:48 | EKG ---
Date Performed: 10/01/2016 Time Performed: 22:27:18 PTAGE: 71 years EKG: Sinus tachycardia Left axis deviation Inferior infarct - age undetermined Anteroseptal T wa ve changes are nonspecific Compared to the previous tracing, there has been an increase in the anteri or T wave changes and the sinus tachycardia is new. Clinical correlation is advised Abnormal ECG PREVIOUS TRACING : 09/21/2016 22.25 DOCTOR: Jennifer Vargas Interpretating Date/Time 10/02/2016 14:46:40
[2016-10-02] MEDS ORDERED: LORazepam 2 MG/ML VIAL IV PUSH ONE (15:00)
--- NOTE | 2016-10-02 15:00 | HHI.HP ---
[facility] No Primary Care Physician Admission Diagnosis COPD EXACERBATION Diagnoses: Chief Complaint: SOB Travel History International Travel<30 Days: No Contact w/Intl Traveler <30 Da: No Traveled to Known Affected Are: No History of Present Illness Patient stated evaluated in follow-up for increased shortness of breath on admission through the emergency room. 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 Patient reports increased work of breathing, dyspnea on exertion for the last several days he came to the hospital. Patient says he had a productive cough and felt as if he could not catch his breath. In the emergency room he was slightly hypoxemic in the was admitted to the hospital for further evaluation. He has chronically abnormal blood gas values and has had some improvement with bronchodilators and oxygen. Of note the patient has not consistent with use of his portable oxygen. At this point patient has been admitted to the hospital for further evaluation and treatment of likely COPD exacerbation. He denies any pain complaint Review of Systems Constitutional: DENIES: Diaphoretic episodes, Fatigue, Fever, Weight gain, Weight loss, Chills, Dizziness, Change in appetite, Night Sweats Endocrine: DENIES: Heat/cold intolerance, Polydipsia, Polyuria, Polyphagia Eyes: DENIES: Blurred vision, Diplopia, Eye inflammation, Eye pain, Vision loss , Photosensitivity, Double Vision Ears, nose, mouth, throat: DENIES: Tinnitus, Hearing loss, Vertigo, Nasal discharge, Oral lesions, Throat pain, Hoarseness, Ear Pain, Running Nose, Epistaxis, Sinus Pain, Toothache, Odynophagia Respiratory: COMPLAINS OF: Wheezing, Sputum production, Shortness of breath, DENIES: Apneas, Cough, Snoring, Hemoptysis Cardiovascular: COMPLAINS OF: Dyspnea on Exertion, DENIES: Chest pain, Palpitations, Syncope, PND, Lower Extremity Edema, Orthopnea, Claudication Gastrointestinal: DENIES: Abdominal pain, Black stools, Bloody stools, Constipation, Diarrhea, Nausea, Vomiting, Difficulty Swallowing, Anorexia Genitourinary: DENIES: Sexual dysfunction, Urinary frequency, Urinary incontinence, Urgency, Hematuria, Dysuria, Nocturia, Penile Discharge, Testicular Pain, Testicular Swelling Musculoskeletal: DENIES: Joint pain, Muscle aches, Stiffness, Joint Swelling, Back pain, Neck pain Integumentary: DENIES: Abnormal pigmentation, Nail changes, Pruritus, Rash Hematologic/lymphatic: DENIES: Bruising, Lymphadenopathy Immunologic/allergic: DENIES: Eczema, Urticaria Neurologic: DENIES: Abnormal gait, Headache, Localized weakness, Paresthesias, Seizures, Speech Problems, Tremor, Poor Balance Psychiatric: DENIES: Anxiety, Confusion, Mood changes, Depression, Hallucinations, Agitation, Suicidal Ideation, Homicidal Ideation, Delusions Past Family Social History Past Medical History copd CAD anxiety bipolar Past Surgical History Cataracts Small bowel resection CABG Bilateral upper lobectomy orthopedic Reported Medications Reviewed in the medical record, did not run out of any Allergies: Coded Allergies: Morphine (Verified Allergy, Severe, Rash, 09/21/16) Azithromycin (Verified Allergy, Intermediate, Itching, 09/21/16) *MDRO Multi-Drug Resistant Organism (Verified Adverse Reaction, Unknown, MRSA, ESBL, 09/24/16) ESBL (sputum) - 07/18/15 & 08/17/15 ESBL (urine) - 08/22/15 MRSA PCR screen POSITIVE - 05/13/16; 06/14/16, 08/07/16 Active Ordered Medications Reviewed in the medical record Family History No family history arrest or problems per patient he reports his mother of heart attack in his father of stroke Social History Patient lives alone and denies tobacco or alcohol dependency Physical Exam Vital Signs Vital Signs Date Time Temp Pulse Resp B/P Pulse Ox O2 Delivery O2 Flow Rate FiO2 10/02/16 13:57 98 Nasal Cannula 3.00 10/02/16 13:15 96.2 88 19 139/81 100 10/02/16 08:27 98 Nasal Cannula 2.00 10/02/16 08:18 95.8 89 19 140/84 99 10/02/16 04:30 100.1 116 22 121/71 96 10/02/16 04:10 Nasal Cannula 2.00 10/02/16 04:10 115 10/02/16 04:00 100.3 115 16 110/74 97 10/02/16 02:40 114 22 133/72 94 Nasal Cannula 2 10/02/16 01:20 117 22 139/83 94 Nasal Cannula 2 10/02/16 00:40 116 26 139/83 92 Nasal Cannula 2 10/02/16 00:05 95 Nasal Cannula 2 10/01/16 23:10 122 26 135/98 92 Nasal Cannula 2 10/01/16 22:45 112 24 144/86 97 Nasal Cannula 2 10/01/16 22:15 114 28 160/88 95 Nasal Cannula 2 10/01/16 22:05 97 Nasal Cannula 4.00 10/01/16 21:50 108 32 156/60 Nasal Cannula 10/01/16 21:40 Nasal Cannula 4 10/01/16 21:40 Nasal Cannula 4 10/01/16 21:15 Nasal Cannula 2.00 10/01/16 20:50 96 50 10/01/16 20:40 99.8 110 30 141/84 Physical Exam GENERAL: This is a well-nourished, well-developed patient, in no apparent distress. SKIN: No rashes, ecchymoses or lesions. Cool and dry. HEAD: Atraumatic. Normocephalic. No temporal or scalp tenderness. EYES: Pupils equal round and reactive. Extraocular motions intact. No scleral icterus. No injection or drainage. ENT: Nose without bleeding, purulent drainage or septal hematoma. Throat without erythema, tonsillar hypertrophy or exudate. Uvula midline. Airway patent. NECK: Trachea midline. No JVD or lymphadenopathy. Supple, nontender, no meningeal signs. CARDIOVASCULAR: Regular rate and rhythm without murmurs, gallops, or rubs. RESPIRATORY: Clear to auscultation. Breath sounds equal bilaterally. No wheezes , rales, or rhonchi. GASTROINTESTINAL: Abdomen soft, non-tender, nondistended. No hepato-splenomegaly , or palpable masses. No guarding. MUSCULOSKELETAL: Extremities without clubbing, cyanosis, or edema. No joint tenderness, effusion, or edema noted. No calf tenderness. Negative Homans sign bilaterally. NEUROLOGICAL: Awake and alert. Cranial nerves II through XII intact. Motor and sensory grossly within normal limits. Five out of 5 muscle strength in all muscle groups. Normal speech. Laboratory Laboratory Tests Test 10/01/16 10/01/16 10/01/16 10/02/16 21:00 21:47 22:10 05:25 White Blood Count 8.7 10.1 Red Blood Count 5.08 4.43 Hemoglobin 15.4 13.6 Hematocrit 46.2 40.2 Mean Corpuscular Volume 91.0 90.6 Mean Corpuscular Hemoglobin 30.3 30.7 Mean Corpuscular Hemoglobin 33.3 33.8 Concent Red Cell Distribution Width 12.7 13.2 Platelet Count 329 315 Mean Platelet Volume 7.4 7.5 Neutrophils (%) (Auto) 71.6 74.2 Lymphocytes (%) (Auto) 17.1 15.4 Monocytes (%) (Auto) 8.3 9.2 Eosinophils (%) (Auto) 1.9 0.7 Basophils (%) (Auto) 1.1 0.5 Neutrophils # (Auto) 6.2 7.5 Lymphocytes # (Auto) 1.5 1.5 Monocytes # (Auto) 0.7 0.9 Eosinophils # (Auto) 0.2 0.1 Basophils # (Auto) 0.1 0.1 CBC Comment DIFF FINAL DIFF FINAL Differential Comment Sodium Level 142 140 Potassium Level 3.5 3.1 Chloride Level 107 105 Carbon Dioxide Level 23.1 23.5 Anion Gap 12 12 Blood Urea Nitrogen 11 12 Creatinine 1.20 1.30 Estimat Glomerular Filtration 60 54 Rate Random Glucose 119 126 Calcium Level 9.2 8.6 Total Bilirubin 0.9 Aspartate Amino Transf 12 (AST/SGOT) Alanine Aminotransferase 16 (ALT/SGPT) Alkaline Phosphatase 109 Troponin I LESS THAN 0.02 B-Type Natriuretic Peptide 66 Total Protein 7.0 Albumin 3.1 Blood Gas Puncture Site RT BRACHIAL Blood Gas Patient Temperature 98.6 Blood Gas HCO3 17 Blood Gas Base Excess -4.0 Blood Gas Oxygen Saturation 97 Arterial Blood pH 7.67 Arterial Blood Partial 15 Pressure CO2 Arterial Blood Partial 108 Pressure O2 Arterial Blood Oxygen Content 21.0 Arterial Blood 2.0 Carboxyhemoglobin Arterial Blood Methemoglobin 0.8 Blood Gas Hemoglobin 15.4 Oxygen Delivery Device NASAL CANNULA Blood Gas Liter Flow 4 Urine Collection Type CLEAN CATCH Urine Color YELLOW Urine Turbidity CLEAR Urine pH 7.0 Urine Specific [place] 1.016 Urine Protein TRACE Urine Glucose (UA) NEG Urine Ketones NEG Urine Occult Blood NEG Urine Nitrite NEG Urine Bilirubin NEG Urine Leukocyte Esterase TRACE Urine WBC 0-2 Urine Squamous Epithelial 0-5 Cells Urine Hyaline Casts 6-9 Urine Mucus FEW Microscopic Urinalysis Comment CULT NOT INDICATED Test 10/02/16 09:15 D-Dimer Quantitative (PE/DVT) 0.81 Date/Time Procedure Status Source Growth 10/02/16 08:30 Influenza Types A,B Antigen (JUDI) - Final Complete Nasal Washing NEGATIVE FOR FLU A AND B ANTIGEN.... Result Diagram: 10/02/16 0525 10/02/1625 Imaging Last Impressions Chest X-Ray 10/01/162051 Signed Impressions: Service Date/Time: Saturday, October 01, 2016 21:26 - CONCLUSION: 1. No acute findings compared with August 2016. Stable basilar lung scarring. Underlying emphysema. Kevin Giang MD Assessment and Plan Problem List: (1) Hypoxia ICD Code: R09.02 Status: Acute Plan: Etiology appears to be COPD. Patient with increased symptoms of dyspnea and shortness of breath. 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
[2016-10-02] MEDS ORDERED: PILL SPLITTER OTHER PRN (15:15)
[2016-10-02] MEDS: FINASTERIDE 5 MG TAB PO SCH (15:20)
[2016-10-02] MEDS: ASPIRIN EC 81 MG TABEC PO SCH (15:20)
[2016-10-02] MEDS: PANTOPRAZOLE SOD 40 MG DELAYED RELEASE TAB PO SCH (15:20)
[2016-10-02] MEDS ORDERED: LORazepam 1 MG TAB PO ONE (16:00)
[2016-10-02] MEDS: predniSONE 20 MG TAB PO SCH (19:59)
[2016-10-02] MEDS: QUEtiapine FUMARATE 25 MG TAB PO SCH (19:59)
[2016-10-02] MEDS: CEFUROXIME AXETIL 500 MG TAB PO SCH (19:59)
--- NOTE | 2016-10-02 20:41 | MB ---
cc: JENSEN STYLES DATE OF CONSULTATION 10/02/16 REASON FOR CONSULTATION COPD exacerbation with acute respiratory failure. HISTORY OF PRESENT ILLNESS Mr. Liu is a 71-year-old male with known history of COPD admitted with increasing shortness of breath, cough with expectoration of small amount of whitish sputum. Denies history of fever, chill. No hemoptysis. Has no previous history of TB or industrial exposure. PAST MEDICAL HISTORY 1. COPD, 2. Coronary artery disease post bypass surgery 3. History of bipolar disorder. 4. Previous lung resection apparently for underlying COPD. FAMILY HISTORY Positive for cardiac disease and stroke. SOCIAL HISTORY Long heavy smoking history, does not smoke at present, does not drink any alcohol. No TB or industrial exposure. ALLERGIES MORPHINE ZITHROMAX REVIEW OF SYSTEMS 12-point review of systems as per HPI and past history otherwise negative. CURRENT MEDICATIONS 1. Flomax 2. Isoptin 3. Lipitor 4. Remeron. 5. Seroquel. 6. Zoloft 7. Prednisone 20 mg twice daily. 8. Pantoprazole 9. DuoNeb 10. Potassium 11. Oxygen 2 liters nasal cannula PHYSICAL EXAMINATION GENERAL: The patient is alert. VITAL SIGNS: Temperature 98, pulse 70, respiratory rate 18, blood pressure 139/80. HEENT: Exam unremarkable. Eyes without icterus. NECK: Without adenopathy or thyroid enlargement. Central trachea. CHEST: Increased PA diameter noted. Hyperresonant to percussion. Few scattered rhonchi on auscultation. CARDIAC: PMI distant. S1-S2 audible. No murmur or rub. ABDOMEN: Lax, audible bowel sounds. EXTREMITIES: No clubbing, cyanosis or edema. SKIN: Normal. No lymphadenopathy. IMAGING STUDIES Chest x-ray - No acute abnormality seen. Scarring at the bases noted which is chronic compared to August 2016. LABORATORY DATA White count 10,000, hemoglobin 13, hematocrit 40, platelets at 315,000. Arterial blood gas - pH 7.6, pCO2 of 15, pO2 108, believe this is an error in sampling. Sodium 140, potassium 3.1, BUN 12, creatinine 1.3, INR 0.8. IMPRESSION 1. COPD and exacerbation 2. Respiratory failure on oxygen therapy 3. Coronary artery disease 4. Bipolar disorder. PLAN The patient will be placed on oxygen therapy as needed. Bronchodilator therapy given. He is on oral steroids, seems to be doing good with same. We will maintain, assess his response. As long as he shows improvement, we will hold off IV therapy. Antibiotic therapy will be given on empiric basis. Course followed closely and depending on progress proceed further. I do thank you for asking me to partake in Mr. Suarez's care. Jensen Styles MD WWW/ /7:23 PM /8:24 PM
[2016-10-02] MEDS ORDERED: ATORVASTATIN 40 MG TAB PO SCH (21:00)
[2016-10-02] MEDS ORDERED: SERTRALINE HCL 50 MG TAB PO SCH (21:00)
[2016-10-02] MEDS ORDERED: MIRTAZAPINE 15 MG TAB PO SCH (21:00)
[2016-10-02 21:46] LABS: BLOOD GAS BASE EXCESS -2.3 mmol/L (-2-2); BLOOD GAS CARBOXYHEMOGLOBIN 1.8 % (0-4); BLOOD GAS HCO3 21 mmol/L (22-26); BLOOD GAS O2 HGB SATURATION 96 % (90-100); BLOOD GAS OXYGEN CONTENT 18.9 Vol % (12.0-20.0); BLOOD GAS PCO2 28 mmHG (38-42); BLOOD GAS PO2 119 mmHG (61-120); BLOOD GAS TOTAL HGB 13.8 G/DL (12.0-16.0); CRITICAL VALUE NO; DRAW SITE RT BRACHIAL; LITER FLOW 2 L/M; NUMBER OF ARTERIAL PUNCTURES 1; OXYGEN DEVICE NASAL CANNULA; STAT NO; TEMP CORR TO 98.6
[2016-10-03] VITALS: BP 122/87; PULSE 91; RESP 20; TEMP 97.4; O2SAT 100
[2016-10-03 07:39] VITALS: O2SAT 98
[2016-10-03] MEDS: RESP: ALBUTEROL 2.5 MG/IPRATROPIUM 0.5 MG NEB (SCH) NEB ×2 (07:39→13:53)
[2016-10-03 08:00] VITALS: BP 156/75; PULSE 90; RESP 16; TEMP 96.1; O2SAT 100
[2016-10-03] MEDS: SODIUM CHLORIDE 0.9% FLUSH 5 ML FLUSH FLUSH SCH (08:16)
[2016-10-03] MEDS: POTASSIUM CHLORIDE 10 MEQ CONTROLLED RELEASE TAB PO SCH (08:17)
[2016-10-03] MEDS: predniSONE 20 MG TAB PO SCH (08:17)
[2016-10-03] MEDS: CEFUROXIME AXETIL 500 MG TAB PO SCH (08:17)
[2016-10-03] MEDS: ASPIRIN EC 81 MG TABEC PO SCH (08:17)
[2016-10-03] MEDS: QUEtiapine FUMARATE 25 MG TAB PO SCH (08:17)
[2016-10-03] MEDS: PANTOPRAZOLE SOD 40 MG DELAYED RELEASE TAB PO SCH (08:17)
[2016-10-03] MEDS: FINASTERIDE 5 MG TAB PO SCH (08:17)
[2016-10-03] MEDS ORDERED: VERAPAMIL HCL 120 MG TAB PO SCH (09:00)
[2016-10-03] MEDS ORDERED: TAMSULOSIN HCL 0.4 MG CAP PO SCH (09:00)
[2016-10-03 12:00] VITALS: BP 151/86; PULSE 94; RESP 16; TEMP 98.6; O2SAT 100
--- NOTE | 2016-10-03 13:14 | HHI.PR ---
Subjective Remarks Patient states he feels his breathing is back to baseline and he would like to go home. Objective Vitals Vital Signs Date Time Temp Pulse Resp B/P Pulse Ox O2 Delivery O2 Flow Rate FiO2 10/03/16 12:00 98.6 94 16 151/86 100 10/03/16 10:26 Nasal Cannula 3.00 10/03/16 08:00 96.1 90 16 156/75 100 10/03/16 07:39 98 Nasal Cannula 2.00 10/03/16 00:00 97.4 91 20 122/87 100 10/02/16 20:30 96 Nasal Cannula 2.00 10/02/16 20:00 Nasal Cannula 3.00 10/02/16 20:00 99.5 92 20 133/81 98 10/02/16 16:58 99.4 103 17 126/83 92 10/02/16 13:57 98 Nasal Cannula 3.00 10/02/16 13:15 96.2 88 19 139/81 100 I/O 10/02/16 10/02/16 10/02/16 10/03/16 10/03/16 10/03/16 07:00 15:00 23:00 07:00 15:00 23:00 Intake Total 840 ml 240 ml Output Total 250 ml 650 ml 475 ml Balance -250 ml 190 ml -235 ml Intake Oral 840 ml 240 ml IV Total 0 ml 0 ml Output Urine Total 250 ml 650 ml 475 ml # Voids 1 2 # Bowel Movements 0 0 0 Result Diagram: 10/02/16 0525 10/02/16 0525 Objective Remarks GENERAL: Well-nourished, well-developed patient. SKIN: Warm and dry. HEAD: Normocephalic. EYES: No scleral icterus. No injection or drainage. NECK: Supple, trachea midline. No JVD or lymphadenopathy. CARDIOVASCULAR: Regular rate and rhythm without murmurs, gallops, or rubs. RESPIRATORY: Breath sounds equal bilaterally, diminished at bases, no wheezing, nonlabored breathign on NC. No accessory muscle use. GASTROINTESTINAL: Abdomen soft, non-tender, nondistended. EXTREMITIES: No cyanosis, or edema. NEUROLOGICAL: Awake, alert, and oriented x 3. Non-focal. A/P Problem List: (1) Hypoxia ICD Code: R09.02 Status: Acute (2) COPD exacerbation ICD Code: J44.1 Status: Acute Assessment and Plan -CODP exacerbation - improved on PO steroids only. Patient does tend to develop a respiratory alkalosis. He has previous history of bilateral upper lobectomies. Also has bipolar disease and anxiety. I believe patient hyperventilates when he gets anxious and this contributes to the abnormal ABGs. The last time using the hospital he left AGAINST MEDICAL ADVICE. He was only requiring 1 L of oxygen at that time but was very upset that the respiratory therapists were not not keeping him at 3 L. Regardless today he feels good. I hear no wheezing on exam and his ABG has improved. He states he has bronchodilators at home. His cmm technician is Dr. Moya and he agrees to follow-up with him next week. We'll discharge home with Medrol Dosepak. Elsa Alanis MD Oct 03, 2016 13:14
[2016-10-03] MEDS ORDERED: MEDR4PAK PO (13:15)
== END 2016-10-03 15:43 | disposition home health service (06) ==
LOC: PHED 20:35 → PHEDA 23:01 → PH3B 10-02 03:56
PROVIDERS: ADMIT Family Medicine; ATTEND Family Medicine
DX: J44.1 Chronic obstructive pulmonary disease with (acute) exacerbation (principal); Z79.01 Long term (current) use of anticoagulants; M10.9 Gout, unspecified; G47.00 Insomnia, unspecified; E78.00 Pure hypercholesterolemia, unspecified; R07.9 Chest pain, unspecified; I50.9 Heart failure, unspecified; I25.10 Atherosclerotic heart disease of native coronary artery without angina pectoris; E11.9 Type 2 diabetes mellitus without complications; K57.92 Diverticulitis of intestine, part unspecified, without perforation or abscess without bleeding; K21.9 Gastro-esophageal reflux disease without esophagitis; N40.0 Benign prostatic hyperplasia without lower urinary tract symptoms; I10 Essential (primary) hypertension; I25.2 Old myocardial infarction; Z95.1 Presence of aortocoronary bypass graft; Z79.899 Other long term (current) drug therapy; R23.0 Cyanosis; E87.3 Alkalosis; J96.01 Acute respiratory failure with hypoxia; F31.9 Bipolar disorder, unspecified
CPT/HCPCS: 36600; 71010; 80048; 80053; 81001; 82805; 83880; 84484; 85025; 85379; 87804; 93005; 94002; 94640; 94664; 99285; G0378; J7512